=== PATIENT | female | born 1990 | race Caucasian/White ===

== ENCOUNTER 2019-09-04 14:07 | Inpatient (IN) ==
[2019-09-04] MEDS ORDERED: MAGNESIUM SULF RIDER 100 ML IV ONE (14:29)
[2019-09-04] MEDS: AMPICILLIN INJ 2,000 MG in SODIUM CHLORIDE 0.9% 100 ML IV SCH ×2 (14:56→21:00)
[2019-09-04] MEDS: LACTATED RINGERS 1,000 ML IV SCH (14:56)
[2019-09-04] MEDS: BETAMETH SODIUM PHOS/ACETATE 30 MG/5 ML VIAL IM SCH (14:56)
[2019-09-04] MEDS ORDERED: CALCIUM GLUCONATE 1,000 MG in SODIUM CHLORIDE 0.9% 100 ML IV PRN (15:00)
[2019-09-04 15:01] LABS: Basophils % 0.2 % (0.0-0.8); Eosinophils # 0.1 10*3/uL (0.0-0.87); Eosinophils % 0.6 % (0.00-10.9); Hematocrit 35.1 VOL% (35.7-47.0); Immature Granulocytes % 1.5 %; Immature Granulocytes Absolute 0.27 #; Lymphocytes % 11.1 % (21.3-54.2); Mean Corpuscular HGB Conc 34.2 GM/DL (32-36); Mean Corpuscular Volume 92.1 FL (87-102); Mean Platelet Volume 10.4 FL (9.6-12.0); Monocytes % 8.4 % (1.7-12.7); Neutrophils % 78.2 % (38.7-73.9); Platelet Count 273 T/CUMM (130-400); Red Blood Count 3.81 MC/CUMM (3.8-5.5); Red Cell Distribution Width 13.2 % (9.3-17.3); White Blood Count 17.6 T/CUMM (4-12)
[2019-09-04 15:17] VITALS: BP 121/74
[2019-09-04] MEDS: MAGNESIUM SULF DRIP 40 GM/1,000 ML ML IV SCH (15:24)
[2019-09-05] MEDS: AMPICILLIN INJ 2,000 MG in SODIUM CHLORIDE 0.9% 100 ML IV SCH ×5 (02:56→20:29)
[2019-09-05] MEDS: LACTATED RINGERS 1,000 ML IV SCH ×2 (04:11→15:53)
[2019-09-05] MEDS: MAGNESIUM SULF DRIP 40 GM/1,000 ML ML IV SCH ×2 (12:01→15:37)
[2019-09-05] MEDS: ONDANSETRON 4 MG/2 ML VIAL IV PRN ×2 (15:31→21:26)
[2019-09-05] MEDS: BETAMETH SODIUM PHOS/ACETATE 30 MG/5 ML VIAL IM SCH (15:36)
[2019-09-06] MEDS: LACTATED RINGERS 1,000 ML IV SCH (01:34)
[2019-09-06] MEDS: AMPICILLIN INJ 2,000 MG in SODIUM CHLORIDE 0.9% 100 ML IV SCH ×2 (02:08→09:07)
[2019-09-06] MEDS: ONDANSETRON 4 MG/2 ML VIAL IV PRN (05:11)
[2019-09-06] MEDS: MAGNESIUM SULF DRIP 40 GM/1,000 ML ML IV SCH (06:43)
[2019-09-06] MEDS ORDERED: NIFEdipine 10 MG CAPSULE PO SCH (09:00)
== END 2019-09-06 11:47 | disposition home or self-care (01) | DRG 831 ==
LOC: N.LDOUT 14:07 → N.LD 14:17
PROVIDERS: ADMIT Specialist; ATTEND Specialist

== ENCOUNTER 2019-09-09 03:46 | Inpatient (IN) ==
[2019-09-09] MEDS ORDERED: ONDANSETRON 4 MG/2 ML VIAL IV PRN (03:57)
[2019-09-09] MEDS ORDERED: LACTATED RINGERS 250 ML IV ONE (03:57)
[2019-09-09] MEDS ORDERED: AMPICILLIN INJ 2,000 MG in SODIUM CHLORIDE 0.9% 100 ML IV ONE (04:00)
[2019-09-09] MEDS ORDERED: LACTATED RINGERS 1,000 ML IV SCH ×2 (04:00→04:30)
[2019-09-09] MEDS ORDERED: OXYTOCIN/LR 20 UNIT/1,000 ML BAG IV SCH (04:00)
[2019-09-09] MEDS ORDERED: diphenhydrAMINE 50 MG/1 ML VIAL IV PRN (04:03)
[2019-09-09] MEDS ORDERED: CITRIC ACID/SODIUM CITRATE 30 ML UDCUP PO ONE (04:03)
[2019-09-09] MEDS ORDERED: ONDANSETRON 4 MG/2 ML VIAL IV ONE (04:03)
[2019-09-09] MEDS ORDERED: AMPICILLIN 2,000 MG VIAL ONE (04:03)
[2019-09-09] MEDS ORDERED: FAMOTIDINE 20 MG/2 ML VIAL IV ONE (04:03)
[2019-09-09] MEDS ORDERED: NALOXONE 0.4 MG/ML VIAL IV PRN (04:03)
[2019-09-09 04:14] LABS: Basophils # 0.1 10*3/uL (0.0-0.2); Basophils % 0.2 % (0.0-0.8); Eosinophils # 0.2 10*3/uL (0.0-0.87); Eosinophils % 0.7 % (0.00-10.9); Hematocrit 38.3 VOL% (35.7-47.0); Immature Granulocytes % 2.1 %; Lymphocytes # 1.9 10*3/uL (1.4-4.0); Lymphocytes % 8.7 % (21.3-54.2); Mean Corpuscular HGB Conc 33.9 GM/DL (32-36); Mean Corpuscular Volume 92.5 FL (87-102); Mean Platelet Volume 10.1 FL (9.6-12.0); Monocytes % 8.8 % (1.7-12.7); Neutrophils % 79.5 % (38.7-73.9); Platelet Count 310 T/CUMM (130-400); Red Blood Count 4.14 MC/CUMM (3.8-5.5); Red Cell Distribution Width 13.2 % (9.3-17.3); White Blood Count 22.2 T/CUMM (4-12)
[2019-09-09 04:15] LABS: Immature Granulocytes Absolute 0.46 #
[2019-09-09] MEDS ORDERED: fentaNYL 2 MCG/ROPIV 0.2% EPID 100 ML EPIDURAL SCH (04:30)
[2019-09-09 04:35] LABS: Band Neutrophils 2 % (0-10); Eosinophils 3 % (0-10); Hypochromasia Slight; Lymphocytes 3 % (20-55); Platelet Estimate Adequate; Segmented Neutrophils 85 % (50-85); Total Cells Counted 100
[2019-09-09] MEDS ORDERED: PHENYLEPHRINE 1 MG/10 ML SYRINGE IV ONE (04:52)
[2019-09-09] MEDS: ePHEDrine 50 MG/ML AMP IV PRN ×2 (05:07→05:34)
[2019-09-09] MEDS ORDERED: TRANEXAMIC ACID 1,000 MG/10 ML VIAL ONE (05:18)
[2019-09-09] MEDS ORDERED: OXYTOCIN/LR 20 UNIT/1,000 ML BAG IV ONE ×2 (05:18→11:15)
[2019-09-09] MEDS ORDERED: miSOPROStoL 200 MCG TABLET ONE (05:18)
[2019-09-09] MEDS ORDERED: METHYLERGONOVINE 0.2 MG/1 ML AMP ONE (05:18)
[2019-09-09] MEDS ORDERED: CARBOPROST TROMETHAMINE 250 MCG/ML AMP IM ONE (05:19)
[2019-09-09] MEDS ORDERED: LIDOCAINE 1% 50 ML VIAL ONE (05:19)
[2019-09-09] MEDS: oxyCODONE/ACETAMINOPHEN 5-325 MG TABLET PO PRN ×2 (11:25→20:12)
[2019-09-09] MEDS: IBUPROFEN 800 MG TABLET PO PRN ×2 (11:25→20:12)
[2019-09-09] MEDS: DOCUSATE SODIUM 100 MG CAPSULE PO SCH (20:12)
[2019-09-10 06:17] LABS: Basophils # 0.1 10*3/uL (0.0-0.2); Basophils % 0.3 % (0.0-0.8); Eosinophils # 0.2 10*3/uL (0.0-0.87); Eosinophils % 0.9 % (0.00-10.9); Hematocrit 32.9 VOL% (35.7-47.0); Hemoglobin 10.7 GM/DL (12.0-16.0); Immature Granulocytes Absolute 0.45 #; Lymphocytes # 3.1 10*3/uL (1.4-4.0); Lymphocytes % 13.9 % (21.3-54.2); Mean Corpuscular HGB Conc 32.5 GM/DL (32-36); Mean Corpuscular Volume 96.8 FL (87-102); Mean Platelet Volume 10.5 FL (9.6-12.0); Monocytes % 7.5 % (1.7-12.7); Neutrophils % 75.4 % (38.7-73.9); Platelet Count 252 T/CUMM (130-400); Red Cell Distribution Width 13.4 % (9.3-17.3); White Blood Count 22.1 T/CUMM (4-12)
[2019-09-10 06:37] LABS: Band Neutrophils 2 % (0-10); Eosinophils 2 % (0-10); Lymphocytes 12 % (20-55); Platelet Estimate Adequate; Segmented Neutrophils 81 % (50-85); Total Cells Counted 100
[2019-09-10 06:38] LABS: Hypochromasia Slight
[2019-09-10] MEDS ORDERED: RHO(D) IMMUNE GLOBULIN 300 MCG SYRINGE IM ONE (09:31)
[2019-09-10] MEDS: DOCUSATE SODIUM 100 MG CAPSULE PO SCH ×2 (09:44→22:17)
[2019-09-10] MEDS: oxyCODONE/ACETAMINOPHEN 5-325 MG TABLET PO PRN (22:17)
[2019-09-10] MEDS: IBUPROFEN 800 MG TABLET PO PRN (22:18)
[2019-09-11 07:12] VITALS: BP 127/81
[2019-09-11] MEDS: DOCUSATE SODIUM 100 MG CAPSULE PO SCH (08:31)
== END 2019-09-11 13:00 | disposition home or self-care (01) | DRG 806 ==
LOC: N.LDOUT 03:46 → N.LD 03:47 → N.OB 11:02
PROVIDERS: ADMIT Specialist; ATTEND Specialist

== ENCOUNTER 2021-06-25 23:03 | Inpatient (IN) ==
[2021-06-25] MEDS ORDERED: BUTORPHANOL 2 MG/ML VIAL IV PRN (23:24)
[2021-06-25] MEDS ORDERED: MEPERIDINE 50 MG/1 ML VIAL IV PRN (23:24)
[2021-06-25] MEDS ORDERED: LACTATED RINGERS 500 ML IV PRN (23:24)
[2021-06-25] MEDS ORDERED: ONDANSETRON 4 MG/2 ML VIAL IV PRN (23:24)
[2021-06-25] MEDS ORDERED: LACTATED RINGERS 1,000 ML IV SCH (23:30)
[2021-06-25] MEDS ORDERED: fentaNYL 2 MCG/ROPIV 0.2% EPID 100 ML EPIDURAL SCH (23:45)
[2021-06-25] MEDS: LACTATED RINGERS 1,000 ML IV SCH (23:45)
[2021-06-25 23:50] LABS: Basophils % 0.1 % (0.0-0.8); Eosinophils # 0.1 10*3/uL (0.0-0.87); Eosinophils % 0.7 % (0.00-10.9); Hematocrit 35.8 VOL% (35.7-47.0); Hemoglobin 12.1 GM/DL (12.0-16.0); Immature Granulocytes % 2.4 %; Immature Granulocytes Absolute 0.36 #; Lymphocytes # 2.1 10*3/uL (1.4-4.0); Lymphocytes % 14.2 % (21.3-54.2); Mean Corpuscular HGB Conc 33.8 GM/DL (32-36); Mean Corpuscular Volume 91.8 FL (87-102); Mean Platelet Volume 10.7 FL (9.6-12.0); Monocytes % 9.6 % (1.7-12.7); Platelet Count 269 T/CUMM (130-400); Red Cell Distribution Width 13.8 % (9.3-17.3); White Blood Count 14.8 T/CUMM (4-12)
[2021-06-25] MEDS ORDERED: ePHEDrine 50 MG/ML VIAL IV PRN (23:56)
[2021-06-25] MEDS ORDERED: diphenhydrAMINE 50 MG/1 ML VIAL IV PRN (23:56)
[2021-06-25] MEDS ORDERED: NALOXONE 0.4 MG/ML VIAL IV PRN (23:56)
[2021-06-25] MEDS ORDERED: FAMOTIDINE 20 MG/2 ML VIAL IV ONE (23:58)
[2021-06-25] MEDS ORDERED: CITRIC ACID/SODIUM CITRATE 30 ML UDCUP PO ONE (23:58)
[2021-06-26] MEDS ORDERED: CITRIC ACID/SODIUM CITRATE 30 ML UDCUP ONE (00:01)
[2021-06-26 00:08] LABS: Alanine Aminotransferase 15 U/L (13-56); Albumin 2.4 G/DL (3.4-5.0); Alkaline Phosphatase 235 U/L (45-117); Aspartate Amino Transferase 12 U/L (0-37); Bilirubin,Total < 0.39 MG/DL (0.20-1.00); Blood Urea Nitrogen 9 MG/DL (7-18); Calcium 9.9 MG/DL (8.5-10.1); Carbon Dioxide 22 MMOL/L (21-32); Estimated Glom Filtration Rate 131 ML/MIN; Glucose 108 MG/DL (74-106); Osmolality,Calculated 272.8 MOS/KG (273-304); Potassium 3.9 MMOL/L (3.5-5.1); Sodium 137 MMOL/L (136-145); Total Protein 6.6 G/DL (6.4-8.2)
[2021-06-26] MEDS ORDERED: TRANEXAMIC ACID 1,000 MG/10 ML VIAL ONE (01:25)
[2021-06-26] MEDS ORDERED: OXYTOCIN/LR 20 UNIT/1,000 ML BAG IV ONE ×3 (01:25→08:19)
[2021-06-26] MEDS ORDERED: miSOPROStoL 200 MCG TABLET ONE (01:25)
[2021-06-26] MEDS ORDERED: METHYLERGONOVINE 0.2 MG/1 ML AMP ONE (01:25)
[2021-06-26] MEDS ORDERED: CARBOPROST TROMETHAMINE 250 MCG/ML AMP IM ONE (01:26)
[2021-06-26] MEDS ORDERED: LIDOCAINE 1% 50 ML VIAL ONE (01:33)
[2021-06-26 01:54] LABS: Eosinophils 1 % (0-10); Lymphocytes 12 % (20-55); Segmented Neutrophils 82 % (50-85); Total Cells Counted 100
[2021-06-26 01:59] LABS: Cord Arterial Blood HCO3 19.9 MMOL/L
[2021-06-26 02:01] LABS: Cord Venous Blood HCO3 21.6 MMOL/L; Cord Venous Blood PO2 26.1
[2021-06-26] MEDS ORDERED: LANOLIN 50% CREAM 0.3 OZ TUBE TOP PRN (02:01)
[2021-06-26] MEDS ORDERED: MEASLES/MUMPS/RUBELLA VACCINE 0.5 ML VIAL SUBCUT ONE (02:01)
[2021-06-26] MEDS ORDERED: ACETAMINOPHEN 325 MG TABLET PO PRN (02:01)
[2021-06-26] MEDS ORDERED: RHO(D) IMMUNE GLOBULIN 300 MCG SYRINGE IM ONE (02:01)
[2021-06-26] MEDS ORDERED: BENZOCAINE 20%/MENTHOL 0.5% SPRAY 56 GM CAN TOP PRN (02:01)
[2021-06-26] MEDS ORDERED: BISACODYL 10 MG SUPP RECTAL PRN (02:01)
[2021-06-26] MEDS ORDERED: WITCH HAZEL PADS 100/JAR TOP PRN (02:01)
[2021-06-26] MEDS ORDERED: ONDANSETRON 4 MG/2 ML VIAL IV PRN (02:01)
[2021-06-26] MEDS ORDERED: oxyCODONE/ACETAMINOPHEN 5-325 MG TABLET PO PRN (02:01)
[2021-06-26] MEDS ORDERED: HYDROCORTISONE 2.5% RECTAL CREAM 30 GM TUBE TOP PRN (02:01)
[2021-06-26] MEDS ORDERED: DIPH/TET/ACEL PERT BOOSTER VACCINE 0.5 ML VIAL IM ONE (02:01)
[2021-06-26] MEDS: LACTATED RINGERS 1,000 ML IV SCH (02:05)
[2021-06-26 02:09] LABS: Bilirubin,Urine Negative (Negative); Blood, Urine Negative (Negative); Glucose,Urine (UA) Negative (Negative); Ketones,Urine Negative (Negative); Nitrite,Urine Negative (Negative); Protein,Urine Negative; Squamous Epithelial Cell,Urine Occasional /HPF (0-10); Urine Appearance Slightly Hazy (Clear); Urine Color Yellow (Yellow); Urine Specific Gravity 1.008 (1.001-1.035); Urine Urobilinogen < 2.0 EU/DL (<2.0)
[2021-06-26 02:57] LABS: Platelet Estimate Normal
[2021-06-26 06:55] LABS: Basophils # 0.1 10*3/uL (0.0-0.2); Basophils % 0.2 % (0.0-0.8); Hematocrit 37.7 VOL% (35.7-47.0); Hemoglobin 12.4 GM/DL (12.0-16.0); Immature Granulocytes % 1.3 %; Immature Granulocytes Absolute 0.33 #; Lymphocytes # 1.4 10*3/uL (1.4-4.0); Lymphocytes % 5.4 % (21.3-54.2); Mean Corpuscular HGB Conc 32.9 GM/DL (32-36); Mean Corpuscular Volume 94.7 FL (87-102); Mean Platelet Volume 11.2 FL (9.6-12.0); Monocytes % 5.1 % (1.7-12.7); Platelet Count 275 T/CUMM (130-400); Red Blood Count 3.98 MC/CUMM (3.8-5.5); Red Cell Distribution Width 13.6 % (9.3-17.3); White Blood Count 25.9 T/CUMM (4-12)
[2021-06-26] MEDS: oxyCODONE/ACETAMINOPHEN 5-325 MG TABLET PO PRN ×2 (08:18→20:51)
[2021-06-26] MEDS: DOCUSATE SODIUM 100 MG CAPSULE PO SCH ×2 (11:18→20:51)
[2021-06-26] MEDS: IBUPROFEN 800 MG TABLET PO PRN (20:52)
[2021-06-27 04:30] LABS: Basophils # 0.1 10*3/uL (0.0-0.2); Basophils % 0.4 % (0.0-0.8); Eosinophils # 0.1 10*3/uL (0.0-0.87); Eosinophils % 0.8 % (0.00-10.9); Hematocrit 33.7 VOL% (35.7-47.0); Hemoglobin 11.1 GM/DL (12.0-16.0); Immature Granulocytes % 2.2 %; Immature Granulocytes Absolute 0.35 #; Lymphocytes # 2.5 10*3/uL (1.4-4.0); Lymphocytes % 15.9 % (21.3-54.2); Mean Corpuscular HGB Conc 32.9 GM/DL (32-36); Mean Corpuscular Volume 94.9 FL (87-102); Mean Platelet Volume 10.5 FL (9.6-12.0); Monocytes % 7.5 % (1.7-12.7); Neutrophils % 73.2 % (38.7-73.9); Platelet Count 229 T/CUMM (130-400); Red Blood Count 3.55 MC/CUMM (3.8-5.5); Red Cell Distribution Width 13.7 % (9.3-17.3); White Blood Count 15.8 T/CUMM (4-12)
[2021-06-27 04:55] LABS: Eosinophils 1 % (0-10); Hypochromia Slight; Lymphocytes 13 % (20-55); Microcytosis Slight; Platelet Estimate Adequate; Segmented Neutrophils 82 % (50-85); Total Cells Counted 100
[2021-06-27] MEDS: IBUPROFEN 800 MG TABLET PO PRN ×2 (07:45→07:46)
[2021-06-27 08:03] VITALS: BP 125/78
[2021-06-27] MEDS ORDERED: RHO(D) IMMUNE GLOBULIN 300 MCG SYRINGE IM ONE (09:00)
[2021-06-27] MEDS: DOCUSATE SODIUM 100 MG CAPSULE PO SCH (09:06)
== END 2021-06-27 14:27 | disposition home or self-care (01) | DRG 807 ==
LOC: N.LD 23:03 → N.OB 06-27 06:58
PROVIDERS: ADMIT Specialist; ATTEND Specialist